=== PATIENT | female | born 1945 | race Hispanic/Latino ===

== ENCOUNTER → 2018-01-28 | Outpatient (CLI) | payer OTHER, MEDICARE ==
[~2018-01-28] MED LIST: AMLO10TA2 PO; GLIP5TAB11 PO; IBUP-2077 PO; LEVO500T2 PO; LOSA50TA37 PO; METF500T6 PO; OXYB10TA PO; PANT40TA25 PO; PRED20TA3 PO; PROP20TA7 PO
== END | disposition home or self-care (01) ==
LOC: RAH 07:59
PROVIDERS: ATTEND Family Medicine
DX: Z12.31 Encounter for screening mammogram for malignant neoplasm of breast (principal)
CPT/HCPCS: 77067